=== PATIENT | male | born 1965 | race Caucasian/White ===

== ENCOUNTER 2018-02-04 15:12 | Emergency (ER) | payer OTHER ==
[~2018-02-04] VITALS: Ht 182.9 cm; Wt 100.0 kg
[~2018-02-04 15:12] MED LIST: AMBIEN 10MG10 MG PO; BENICAR 20MG TA20 MG PO; PROTONIX 40MG T40 MG PO; ZOCOR 20MG20 MG PO
[2018-02-04 15:15] VITALS: TEMP 98.9
[2018-02-04] MEDS ORDERED: CEPHALEXIN500 M1 PO (16:24)
[2018-02-04 16:49] VITALS: BP 130/84; PULSE 58
== END 2018-02-04 16:51 | disposition home or self-care (01) ==
LOC: COL.ER 15:12
DX: S61.412A Laceration without foreign body of left hand, initial encounter (principal); S61.432A Puncture wound without foreign body of left hand, initial encounter; E78.5 Hyperlipidemia, unspecified; K21.9 Gastro-esophageal reflux disease without esophagitis; Z23 Encounter for immunization; W26.8XXA Contact with other sharp object(s), not elsewhere classified, initial encounter
CPT/HCPCS: J0690; J2405; J7050